=== PATIENT | female | born 2000 | race Caucasian/White ===

== ENCOUNTER 2024-02-28 01:04 | Inpatient (IN) ==
[2024-02-28 01:41] LABS: Basophils # (auto) 0.05 K/uL (0.00-0.20); Basophils % (auto) 0.5 %; Eosinophils # (auto) 0.22 K/uL (0.00-0.50); Eosinophils % (auto) 2.2 %; Hematocrit (blood only) 40.5 % (37.0-47.0); Hemoglobin 13.8 g/dl (12.0-16.0); Immature Granulocytes # (auto) 0.02 K/uL (0.01-0.20); Immature Granulocytes % (auto) 0.2 %; Lymphocytes # (auto) 2.99 K/uL (1.20-3.40); Lymphocytes % (auto) 29.4 %; Mean Corpuscular Hemoglobin 30.6 pg (25.0-34.0); Mean Corpuscular Hgb Conc 34.1 g/dL (32.0-36.0); Mean Corpuscular Volume 89.8 fL (80.0-100.0); Mean Platelet Volume 8.5 fL (9.4-12.4); Monocytes # (auto) 0.58 K/uL (0.11-0.59); Monocytes % (auto) 5.7 %; Neutrophils # (auto) 6.32 K/uL (1.40-6.50); Platelet Count 303 K/uL (130-400); RDW Coefficient of Variation 12.4 % (11.5-14.5); RDW Standard Deviation 40.9 fL (36.4-46.3); Red Blood Count 4.51 M/uL (4.20-5.40); White Blood Count 10.18 K/ul (4.8-10.8)
[2024-02-28 01:50] LABS: Albumin Globulin Ratio 1.7 (0.9-2); Albumin Level 4.5 gm/dl (3.4-5.0); BUN Creatinine Ratio 19.7 (10-20); Bilirubin,Total 0.4 mg/dl (0.2-1.0); Calcium 9.3 mg/dl (8.6-10.3); Creatinine Clr Calc Pharmacy 92.6 ml/min; Globulin 2.6 gm/dl (2.5-4.0); Potassium 3.6 mmol/L (3.5-5.1); Total Protein 7.1 gm/dl (6.0-8.3)
[2024-02-28 01:52] LABS: Pregnancy Test, Serum Negative (Negative)
[2024-02-28] MEDS: ONDANSETRON INJ 2 MG/ML 2 ML VIAL ONE (02:00)
[2024-02-28] MEDS: HYDROmorphone INJ 0.5 MG/0.5 ML SYR IV STA ×2 (02:36→03:34)
--- NOTE | 2024-02-28 02:43 | History & Physical Report ---
Date of Service February 28, 2024 Assessment & Plan (1) Abdominal pain: Present on Admission?: Yes Plan Admit under REPORTING LEAD service NPO/IV Fluids Pelvic / TV ultrasound CBC, BMP Dilaudid IV Pt is clinically stable Will have to be taken to the OR for cystectomy /oophorectomy based on the ultrasound report. History of Present Illness Chief Complaint: Acute abdominal pain Primary Care Provider: NO PCP pt 23 yr old G0 came in c/o severe acute abdominal /pelvic pain few hrs ago , all over the abdomen with nausea and vomiting. Pt was diagnosed with endometrioma last week in [place]. Pt is visiting her BF here yesterday, been to the bar last night started severe pain. Denies abnormal vaginal bleeding, urinary or bowel issues. No significant medical history. Pt had h/o regular periods but became slightly irregular since few months. Not on any method of contraception currently. Home Medications Medication Instructions Recorded Confirmed Type No Known Home Medications 02/28/24 02/28/24 History Past Med/Surg History Problem List (Updated 02/28/24 @ 02:40 by Honey Arredondo MD) Abdominal pain Social History Smoking Status: Never smoker Feels Safe at Home: Yes Review of Systems Review of Systems: All systems reviewed & are unremarkable except as noted in HPI & below Respiratory: as per Subjective / HPI Cardiovascular: as per Subjective / HPI Gastrointestinal: + abdominal pain, + nausea and + vomitin g Genitourinary: + pelvic pain Physical Exam Constitutional: WD/WN, vitals as above well developed Respiratory: normal respiratory effort, lungs clear to auscultation Cardiovascular: RRR, no murmur, no edema Gastrointestinal (Abdomen): Percussion/Palpation: + abdomen tender, + guarding and abdomen soft Results & Data Results & Data Vital Signs (Past 12 Hours) Vital Signs Temp Pulse Pulse Resp BP BP Pulse Ox 02/28/24 01:24 73 20 98 02/28/24 00:51 36.5 C 73 20 120/88 98 02/28/24 00:51 36.5 C 73 20 120/88 98 O2 Del Method 02/28/24 01:24 Room Air 02/28/24 00:51 Room Air 02/28/24 00:51 Room Air
[2024-02-28 03:11] LABS: Hemoglobin 13.5 g/dl (12.0-16.0)
[2024-02-28 03:15] LABS: iSTAT Creatinine 0.7 mg/dl (0.6-1.3); iSTAT Hemoglobin 12.9 g/dl (12.0-16.0); iSTAT Ionized Calcium 1.17 mmol/l (1.12-1.32); iSTAT Potassium 3.8 mmol/L (3.3-5.0)
[2024-02-28] MEDS ORDERED: SODIUM CHLORIDE 0.9% IV SCH (03:45)
[2024-02-28] MEDS: SODIUM CHLORIDE 0.9% 1,000 ML IV SCH (03:54)
--- NOTE | 2024-02-28 04:00 | Ultrasound Report ---
Exam(s): US PELVIS EXAM: US Pelvis Transabdominal, Complete CLINICAL HISTORY: Reason for exam: eval for ruptured ovarian cyst. TECHNIQUE: Real-time complete transabdominal pelvic ultrasound with image documentation. COMPARISON: No relevant prior studies available. FINDINGS: The study is significantly limited as transabdominal images are provided only. Within region of the left adnexa there is a large presumed complex cystic mass 12.7 cm in maximal dimension with apparent fluid fluid/fluid fat or fluid hematocrit level. There is some complex free pelvic fluid present. The ovary is heterogeneous in configuration and not well delineated. The right adnexa is not visualized. IMPRESSION: Significantly limited essentially nondiagnostic exam, there is suspicion of hemoperitoneum there may be large hemorrhagic cyst or endometrioma in an area marked left adnexa Communications: Call Doctor Above results Electronically signed by: Jose Sharp MD 02/28/24 03:59 AM
[2024-02-28] MEDS ORDERED: HYDROmorphone INJ 2 MG/ML SYR/VIAL IV PRN ×2 (04:25→12:25)
[2024-02-28 04:51] LABS: Basophils # (auto) 0.02 K/uL (0.00-0.20); Basophils % (auto) 0.1 %; Eosinophils # (auto) 0.03 K/uL (0.00-0.50); Eosinophils % (auto) 0.2 %; Hematocrit (blood only) 43.8 % (37.0-47.0); Hemoglobin 14.8 g/dl (12.0-16.0); Immature Granulocytes # (auto) 0.04 K/uL (0.01-0.20); Immature Granulocytes % (auto) 0.3 %; Lymphocytes # (auto) 0.85 K/uL (1.20-3.40); Lymphocytes % (auto) 5.6 %; Mean Corpuscular Hemoglobin 30.1 pg (25.0-34.0); Mean Corpuscular Hgb Conc 33.8 g/dL (32.0-36.0); Mean Platelet Volume 8.7 fL (9.4-12.4); Monocytes # (auto) 0.67 K/uL (0.11-0.59); Monocytes % (auto) 4.4 %; Neutrophils # (auto) 13.49 K/uL (1.40-6.50); Neutrophils % (auto) 89.4 %; Platelet Count 263 K/uL (130-400); RDW Coefficient of Variation 12.3 % (11.5-14.5); RDW Standard Deviation 40.3 fL (36.4-46.3); Red Blood Count 4.92 M/uL (4.20-5.40)
[2024-02-28 05:03] LABS: Calcium 9.2 mg/dl (8.6-10.3); Potassium 3.9 mmol/L (3.5-5.1)
[2024-02-28 05:08] LABS: Creatinine Clr Calc Pharmacy 115.4 ml/min
[2024-02-28 05:35] LABS: Appearance Urine Cloudy (Clear); Bacteria Urine Automated None Seen (None Seen); Bilirubin Urine Negative (Negative); Blood Urine Negative (Negative); Cast Urine Automated 0-2 /lpf (0-2); Color Urine Yellow; Epithelial Cell Urine Auto 0-2 /hpf (0-2); Glucose Urine UA Negative (Negative); Ketones Urine 2+ (Negative); Leukocyte Esterase Urine Negative (Negative); Nitrite Urine Negative (Negative); Protein Urine Negative (Negative); RBC Urine Automated 0-2 /hpf (0-2); Specific Gravity Urine 1.017 (1.000-1.030); Urobilinogen Urine Negative (Negative); WBC Urine Automated 0-5 /hpf (0-5); pH Urine 7.5 (4.5-7.5)
[2024-02-28] MEDS ORDERED: fentaNYL citrate PF 100 MCG/2 ML VIAL ONE ×2 (05:39→06:39)
[2024-02-28] MEDS ORDERED: MIDAZOLAM HCL 1 MG/ML 2ML VIAL ONE (05:39)
[2024-02-28] MEDS ORDERED: ONDANSETRON INJ 2 MG/ML 2 ML VIAL ONE (05:45)
[2024-02-28] MEDS ORDERED: ROCURONIUM BROMIDE 10 MG/ML 5 ML VIAL IV ONE (05:45)
[2024-02-28] MEDS ORDERED: PROPOFOL IV EMULSION 10 MG/ML 20 ML VIAL IV ONE (05:45)
[2024-02-28] MEDS ORDERED: DEXAMETHASONE SOD INJ 4 MG/ML VIAL ONE ×2 (05:45→06:50)
--- NOTE | 2024-02-28 05:50 | Anesthesiology Consultation ---
Date of Service February 28, 2024 Assessment & Plan (1) Encounter for pre-operative examination: Chart Review Chart Review: Acceptable Risk for Surgery History Surgery Operation Date: 02/28/24 06:00 Proposed Procedures p Ovarian cystectomy - Honey Arredondo MD Height/Weight Height: 5 ft 2 in Weight: 55.2 kg Allergies Allergy/AdvReac Type Severity Reaction Status Date / Time No Known Allergies Allergy Unverified 02/28/24 04:50 Medications Home Medications Medication Instructions Recorded Confirmed Last Taken No Known Home Medications 02/28/24 02/28/24 Unknown Active Medications Generic Name Dose Route Start Last Admin Trade Name Freq PRN Reason Stop Dose Admin Sodium Chloride 1,000 mls @ 125 mls/hr 02/28/24 04:00 02/28/24 03:54 Nss IV 02/29/24 03:59 125 mls/hr .Q8H ASHTYN Administration Past Medical History Medical History (Updated 02/28/24 @ 05:52 by Cresencio Zimmerman MD) Ovarian cyst Past Surgical History Surgical History (Updated 02/28/24 @ 05:51 by Cresencio Zimmerman MD) History of ankle surgery Social History Smoking Status: Never smoker Hx Alcohol Use: Yes Alcohol type: hard liquor alcohol intake frequency: a few times a month Hx Substance Use: No Physical Exam Vital Signs Last Vital Signs Temp 37 C 02/28/24 04:38 Pulse 96 H 02/28/24 04:38 Resp 20 02/28/24 04:38 BP 121/86 02/28/24 04:38 Pulse Ox 96 02/28/24 04:38 O2 Del Method Room Air 02/28/24 04:38 Testing Laboratory Results 02/28/24 04:39 02/28/24 04:39 Urine Color Yellow 02/28/24 05:00 Urine Appearance Cloudy (Clear) A 02/28/24 05:00 Urine pH 7.5 (4.5-7.5) 02/28/24 05:00 Ur Specific [place] 1.017 (1.000-1.030) 02/28/24 05:00 Urine Protein Negative (Negative) 02/28/24 05:00 Urine Glucose (UA) Negative (Negative) 02/28/24 05:00 Urine Ketones 2+ (Negative) H 02/28/24 05:00 Urine Nitrite Negative (Negative) 02/28/24 05:00 Ur Leukocyte Esterase Negative (Negative) 02/28/24 05:00 Urine WBC (Auto) 0-5 /hpf (0-5) 02/28/24 05:00 Urine RBC (Auto) 0-2 /hpf (0-2) 02/28/24 05:00 U Hyaline Cast (Auto) 0-2 /lpf (0-2) 02/28/24 05:00 U Epithel Cells (Auto) 0-2 /hpf (0-2) 02/28/24 05:00 Urine Bacteria (Auto) None Seen (None Seen) 02/28/24 05:00 Blood Type O Positive 02/28/24 02:05 Antibody Screen NEGATIVE 02/28/24 02:05 02/28/24 02:02 POC Glucose (other) 103 H
[2024-02-28] MEDS ORDERED: PROMETHAZINE HCL 6.25 MG in SODIUM CHLORIDE 0.9% 50 ML IV PRN (05:57)
[2024-02-28] MEDS ORDERED: KETOROLAC 30 MG/ML VIAL IV PRN (05:57)
[2024-02-28] MEDS ORDERED: ONDANSETRON INJ 2 MG/ML 2 ML VIAL IV PRN (05:57)
[2024-02-28] MEDS ORDERED: ATROPINE SULFATE 0.1 MG/ML 10ML SYR IV PRN (05:57)
[2024-02-28] MEDS: ceFAZolin 2000MG 2,000 MG/15 ML SYR IV ONE (06:20)
[2024-02-28] MEDS ORDERED: SUGAMMADEX SODIUM 200 MG/2 ML VIAL IV ONE (06:52)
[2024-02-28] MEDS: SURGICEL ABSORB HEMOSTAT 2IN X 14IN TOP ONE (07:00)
--- NOTE | 2024-02-28 07:20 | Post Operative Brief Note ---
Immediate Post Op Note Date of Surgery February 28, 2024 Pre & Post Diagnosis Operation Date: 02/28/24 06:00 Pre-Op Diagnosis: ruptured left ovarian cyst Post-Op Diagnosis: ruptured left ovarian cyst/ Endometrioma Chocolate color fluid I identified the patient and participated in the time-out.: Yes Procedure Operation Date: 02/28/24 06:00 Actual Procedures left Ovarian cystectomy(Not Applicable) - Honey Arredondo MD Surgeon Honey Arredondo MD Music Pastor surgical services tech avialable for retraction Quantitative Blood Loss (QBL) 50 Findings Consistent with Post-Op Diagnosis Specimens Specimen Description: A. Left cyst Drains Li Catheter Disposition Accompanied Patient To Recovery: Yes
[2024-02-28] MEDS ORDERED: KETOROLAC 30 MG/ML VIAL ONE (07:22)
--- NOTE | 2024-02-28 07:23 | Operative Report ---
Post Operative Report Pre & Post Diagnosis Operation Date: 02/28/24 06:00 Pre-Op Diagnosis: ruptured ovarian cyst Post-Op Diagnosis: ruptured ovarian cyst I identified the patient and participated in the time-out.: Yes Procedure Operation Date: 02/28/24 06:00 Actual Procedures p Ovarian cystectomy(Not Applicable) - Honey Arredondo MD Surgeon Honey Arredondo MD Pickle Pumper rn surgical avialable for retraction Estimated Blood Loss 50 Findings Consistent with Post-Op Diagnosis Specimens chocolate color pelvic fluid, left ovarian cyst Drains chandler to gravity Anesthesia Type General Complications none Disposition Accompanied Patient To Recovery: Yes Disposition: PCU Description of Procedure pt taken to the OR, placed in supine position, general endotracheal incision given with out difficulty. Chandler is placed . 2 gm of Ancef iv given. Pt is prepped and draped in usual fashion, 2 inches small Pfannenstiel skin incision made 2 cm above the symphysis pubis. the fascia is from the underlying fascia, entered the peritoneum after the rectus muscles . large amount of chocolate color fluid seen in the abdomen and pelvis , suctioned . kevin luca 400 cc drained. moist sponges placed in the abdomen for better visualization , large left ovarian cyst approx 13 cm noted, which is ruptured draining the fluid. Both the fallopian tubes are identified and grasped with [place] clamp. Left fallopian tube followed the the fimbriae. with gentle traction, the Lower segment of the cyst is held with Kait clamps and using the hand held LigaSure , the lower part of the cyst is coagulated and cut all across and , sent to pathology. sutures are placed with 2.0 Vicryl at the top portion of the ovarian segment for hemostases. through irrigation done, Surgifoam placed on the site . good hemostases noted, uetrus and both the ovaries are normal. Fascia closed with 0.Vicryl. subcutaneous layer closed with 2.0 Monocryl. Skin is closed with 3.0 Vicryl on Neeraj needle. Dermabond applied. Blood loss 50 cc Sponge , needle , instrument counts complete X 3. Pt tolearted the procdure well. I attest to the content of the Intraoperative Record and any orders documented therein. Any exceptions are noted below. Supervising Physician Co-Signing Physician Notes kortney Arredondo MD
[2024-02-28] MEDS: LIDOCAINE 1% LOCAL 20 ML VIAL ONE (07:31)
[2024-02-28] MEDS: HYDROmorphone INJ 1 MG/ML SYRINGE IV PRN ×2 (07:43→09:17)
--- NOTE | 2024-02-28 07:51 | Anesthesiology Progress Note ---
Date of Service February 28, 2024 Anesthesia Post Procedure Vital Signs Vital Signs: Temp Pulse Pulse Pulse Resp BP BP 02/28/24 07:24 36.0 C L 70 12 125/79 02/28/24 04:38 37 C 96 H 20 121/86 02/28/24 01:24 73 20 02/28/24 01:20 78 02/28/24 00:51 36.5 C 73 20 120/88 02/28/24 00:51 36.5 C 73 20 120/88 Pulse Ox O2 Del Method 02/28/24 07:24 93 Room Air 02/28/24 04:38 96 Room Air 02/28/24 01:24 98 Room Air 02/28/24 01:20 02/28/24 00:51 98 Room Air 02/28/24 00:51 98 Room Air Pain Intensity Abdomen: Pain Intensity: 6 Transfer of Care Handoff Completed per policy Notes Mental Status: alert / awake / arousable and participated in evaluation Patient Amnestic to Procedure: Yes Nausea / Vomiting: adequately controlled Pain: adequately controlled Airway Patency, RR, SpO2: stable & adequate BP & HR: stable & adequate Hydration State: stable & adequate Anesthetic Complications: no major complications apparent and Pt Satisfied with anesthetic care
--- NOTE | 2024-02-28 09:17 | Emergency Department Note ---
Impression & Plan Ovarian cyst Admit to Dr. Arredondo ED Provider Note NAME: KRISTINA GOTTLIEB AGE: 23 SEX: Female INFORMANT: Patient ED PROVIDER(S): Do Chapman DO CHIEF COMPLAINT: severe abdominal pain PLAN: Disposition: admit to gynecology MEDICAL DECISION MAKING: this is a 23-year-old female patient with a known history of a 13 cm ovarian cyst who presents to the emergency department with sudden onset of severe abdominal pain. The patient is concerned that the cyst has ruptured. The patient is hemodynamically stable. On physical exam, the patient has an acute abdomen. H&H were stable. On FAST exam, the patient has some free fluid in the abdomen. I immediately contacted the bungy jump master on-call and she presented to the ER to evaluate the patient. Patient was typed and screened. She went to ultrasound and she was medicated with IV Dilaudid. the patient was kept NPO. Laboratory studies revealed a hemoglobin of 13.8. test was negative. There was no leukocytosis. Urinalysis revealed no signs of infection. There was 2+ ketones. She was admitted by Dr. Arredondo And will have surgery in the morning. Care/management discussed with: Dr. Arredondo And the stat rad radiologist. Triage Nursing notes: reviewed and agree with them. Vital Signs: reviewed and were unremarkable Additional History obtained from: the patient's boyfriend who is at the bedside Differential Diagnosis: ovarian torsion, ovarian cyst rupture, endometrioma, ectopic Diagnostics, independently interpreted by me: Imaging studies: pelvic ultrasound-as per stat rad HPI: 23 year old Female arrives for evaluation of severe abdominal/pelvic pain. this is a 23-year-old female patient who is visiting her boyfriend from [facility]. Is a known history of a 13 cm cyst on her right ovary. she had a fairly sudden onset of discomfort in the lower abdomen. She she had associated nausea and vomiting. EMS was called and she was given IV fentanyl. This gave her no significant relief of her discomfort. PAST MEDICAL HISTORY: None, SOCIAL HISTORY: from [place], [place], HOME MEDICATIONS: none ALLERGIES: none VITALS: See Below PHYSICAL EXAMINATION: HEENT: Head - normocephalic and atraumatic. Pupils are equal, round, and reactive to light. Extraocular eye muscles are intact, and sclera are anicteric. Nose - moist nasal mucosa without discharge. Mouth - moist buccal mucosa. Oropharynx is nonerythematous and there is no tonsillar exudate or edema noted. Neck: Supple; no cervical lymphadenopathy Heart: Regular rate and rhythm. There is a normal S1 and S2 with no murmurs, clicks, or gallops appreciated. Lungs: Clear to auscultation bilaterally with no wheezes, rales, or rhonchi. Abdomen: Soft, exquisitely tender to even light palpation. There was guarding and rebound noted. This was consistent with an acute abdomen. Extremities: No evidence of cyanosis, clubbing, or edema. There are easily palpable peripheral pulses. Skin: warm and dry with good turgor and no rashes. Emergency Department Treatment: nursing clinical director, IV Dilaudid x 2 Emergency department course: patient was evaluated in room C-3. A complete history and physical was performed. Laboratory studies were drawn as above. Urine specimen was obtained. The patient was typed and screened. A FAST exam was performed and showed free fluid. I consulted the on-call bungy jump master. A second IV lock was initiated. The patient was medicated with IV Dilaudid. She went for formal pelvic ultrasound. She was given a second dose of IV Dilaudid. She remains hemodynamically stable. She was admitted for surgery. Past Med/Surg History Problem List (Updated 02/28/24 @ 09:17 by Do Chapman DO) Ovarian cyst (Acute) Encounter for pre-operative examination Abdominal pain Medical History (Updated 02/28/24 @ 09:17 by Do Chapman DO) Ovarian cyst Surgical History (Updated 02/28/24 @ 05:51 by Cresencio Zimmerman MD) History of ankle surgery Social History Smoking Status: Never smoker Hx Alcohol Use: Yes Alcohol type: hard liquor Hx Substance Use: No Preferred Language: Korean Communication Ability: Effective Employee Benefits Manager Required: No Beliefs That Will Affect Care: None Current Living Situation Comment: apartment with roommate Feels Safe at Home: Yes Safety Concerns: Feels Safe At This Time Assistive Devices: None Allergies Allergies Allergy/AdvReac Type Severity Reaction Status Date / Time No Known Allergies Allergy Unverified 02/28/24 04:50 Home Meds Home Medications Medication Instructions Recorded Confirmed No Known Home Medications 02/28/24 02/28/24 Results & Data (ED) Vital Signs Vital Signs - 24 hr 02/28/24 00:51 02/28/24 00:51 02/28/24 01:20 Temperature 36.5 C 36.5 C Temperature Source Oral Oral Pulse Rate 73 78 Pulse Rate [Left] 73 Pulse Rhythm Regular Pulse Rhythm [Left] Regular Pulse Strength Normal Pulse Strength [Left] Normal Respiratory Rate 20 20 Respiratory Effort / Characteristics Non-Labored Spontaneous Non-Labored Spontaneous Respiratory Depth Normal Normal Respiratory Pattern Regular Regular Blood Pressure 120/88 Blood Pressure [Right Arm] 120/88 Blood Pressure Mean 98 Blood Pressure Mean [Right Arm] 98 Blood Pressure Position Lying Blood Pressure Position [Right Arm] Lying Pulse Oximetry 98 98 Oxygen Delivery Method Room Air Room Air Sepsis Recent Fever Within 48 Hours No Sepsis New/Unexplained Change in Mental Status N/A Sepsis Action Taken by Nursing No Action Required 02/28/24 01:24 Temperature Temperature Source Pulse Rate 73 Pulse Rate [Left] Pulse Rhythm Regular Pulse Rhythm [Left] Pulse Strength Pulse Strength [Left] Respiratory Rate 20 Respiratory Effort / Characteristics Respiratory Depth Respiratory Pattern Blood Pressure Blood Pressure [Right Arm] Blood Pressure Mean Blood Pressure Mean [Right Arm] Blood Pressure Position Blood Pressure Position [Right Arm] Pulse Oximetry 98 Oxygen Delivery Method Room Air Sepsis Recent Fever Within 48 Hours Sepsis New/Unexplained Change in Mental Status Sepsis Action Taken by Nursing Laboratory Data 02/28/24 04:39 02/28/24 04:39 Lab Results 02/28/24 02/28/24 02/28/24 Range/Units 01:14 02:02 02:05 WBC 10.18 (4.8-10.8) K/ul RBC 4.51 (4.20-5.40) M/uL Hgb 13.8 (12.0-16.0) g/dl POC Hgb 12.9 (12.0-16.0) g/dl Hct 40.5 (37.0-47.0) % POC Hct 38 (37-47) % MCV 89.8 (80.0-100.0) fL MCH 30.6 (25.0-34.0) pg MCHC 34.1 (32.0-36.0) g/dL RDW Std Deviation 40.9 (36.4-46.3) fL RDW Coeff of Werner 12.4 (11.5-14.5) % Plt Count 303 (130-400) K/uL MPV 8.5 L (9.4-12.4) fL Immature Gran % (Auto) 0.2 % Neut % (Auto) 62.0 % Lymph % (Auto) 29.4 % White % (Auto) 5.7 % Eos % (Auto) 2.2 % Baso % (Auto) 0.5 % Neut # (Auto) 6.32 (1.40-6.50) K/uL Lymph # (Auto) 2.99 (1.20-3.40) K/uL White # (Auto) 0.58 (0.11-0.59) K/uL Eos # (Auto) 0.22 (0.00-0.50) K/uL Baso # (Auto) 0.05 (0.00-0.20) K/uL Immature Gran # (Auto) 0.02 (0.01-0.20) K/uL POC Sodium 142 (135-144) mmol/L Sodium 141 (136-145) mmol/L POC Potassium 3.8 (3.3-5.0) mmol/L Potassium 3.6 (3.5-5.1) mmol/L POC Chloride 104 (101-112) mmol/L Chloride 107 (98-107) mmol/L Carbon Dioxide 27 (21-32) mmol/L POC Total CO2 25 (24-31) mmol/L Anion Gap 7 (3-11) POC Anion Gap 18.0 (16-25) mmol/L POC BUN 14 (7-18) mg/dl BUN 15 (6-23) mg/dl Creatinine 0.76 (0.6-1.2) mg/dl POC Creatinine 0.7 (0.6-1.3) mg/dl Est Cr Clr Drug Dosing 92.6 ml/min eGFR 114.26 BUN/Creatinine Ratio 19.7 (10-20) Glucose 84 (70-99(Fasting)) mg/dl POC Glucose (other) 103 H (70-99) mg/dl Calcium 9.3 (8.6-10.3) mg/dl POC Ioniz Calcium Isabella 1.17 (1.12-1.32) mmol/l Total Bilirubin 0.4 (0.2-1.0) mg/dl AST 15 (13-39) U/L ALT 13 (7-52) U/L Alkaline Phosphatase 71 (34-104) U/L Total Protein 7.1 (6.0-8.3) gm/dl Albumin 4.5 (3.4-5.0) gm/dl Globulin 2.6 (2.5-4.0) gm/dl Albumin/Globulin Ratio 1.7 (0.9-2) Lipase 26 (11-82) U/L HCG, Qual Negative (Negative) Blood Type O Positive Antibody Screen NEGATIVE 02/28/24 Range/Units 02:38 WBC (4.8-10.8) K/ul RBC (4.20-5.40) M/uL Hgb 13.5 (12.0-16.0) g/dl POC Hgb (12.0-16.0) g/dl Hct 40.0 (37.0-47.0) % POC Hct (37-47) % MCV (80.0-100.0) fL MCH (25.0-34.0) pg MCHC (32.0-36.0) g/dL RDW Std Deviation (36.4-46.3) fL RDW Coeff of Werner (11.5-14.5) % Plt Count (130-400) K/uL MPV (9.4-12.4) fL Immature Gran % (Auto) % Neut % (Auto) % Lymph % (Auto) % White % (Auto) % Eos % (Auto) % Baso % (Auto) % Neut # (Auto) (1.40-6.50) K/uL Lymph # (Auto) (1.20-3.40) K/uL White # (Auto) (0.11-0.59) K/uL Eos # (Auto) (0.00-0.50) K/uL Baso # (Auto) (0.00-0.20) K/uL Immature Gran # (Auto) (0.01-0.20) K/uL POC Sodium (135-144) mmol/L Sodium (136-145) mmol/L POC Potassium (3.3-5.0) mmol/L Potassium (3.5-5.1) mmol/L POC Chloride (101-112) mmol/L Chloride (98-107) mmol/L Carbon Dioxide (21-32) mmol/L POC Total CO2 (24-31) mmol/L Anion Gap (3-11) POC Anion Gap (16-25) mmol/L POC BUN (7-18) mg/dl BUN (6-23) mg/dl Creatinine (0.6-1.2) mg/dl POC Creatinine (0.6-1.3) mg/dl Est Cr Clr Drug Dosing ml/min eGFR BUN/Creatinine Ratio (10-20) Glucose (70-99(Fasting)) mg/dl POC Glucose (other) (70-99) mg/dl Calcium (8.6-10.3) mg/dl POC Ioniz Calcium Isabella (1.12-1.32) mmol/l Total Bilirubin (0.2-1.0) mg/dl AST (13-39) U/L ALT (7-52) U/L Alkaline Phosphatase (34-104) U/L Total Protein (6.0-8.3) gm/dl Albumin (3.4-5.0) gm/dl Globulin (2.5-4.0) gm/dl Albumin/Globulin Ratio (0.9-2) Lipase (11-82) U/L HCG, Qual (Negative) Blood Type Antibody Screen Administered Medications Acetaminophen (Acetaminophen 325 Mg Tab) 650 mg PO Q4H PRN PRN Reason: Pain Stop: 03/29/24 12:23 Last Admin: 02/28/24 12:36 Dose: 650 mg Documented By: ASHLYN Sodium Chloride (Nss) 1,000 mls @ 125 mls/hr IV .Q8H ASHTYN Stop: 02/29/24 03:59 Last Admin: 02/28/24 15:09 Dose: Not Given Documented By: Admin: 02/28/24 03:54 Dose: 125 mls/hr Documented By: KATHI Simethicone (Simethicone 80 Mg Chew) 80 mg PO Q6H PRN PRN Reason: Flatulence Stop: 03/29/24 12:22 Last Admin: 02/28/24 12:36 Dose: 80 mg Documented By: ASHLYN Discontinued Medications Hydromorphone HCl (Hydromorphone Inj 0.5 Mg/0.5 Ml Syr) 0.5 mg IV NOW STA Stop: 02/28/24 02:32 Last Admin: 02/28/24 02:36 Dose: 0.5 mg Documented By: KATHI Hydromorphone HCl (Hydromorphone Inj 0.5 Mg/0.5 Ml Syr) 0.5 mg IV NOW STA Stop: 02/28/24 03:27 Last Admin: 02/28/24 03:34 Dose: 0.5 mg Documented By: KATHI Hydromorphone HCl (Hydromorphone Inj 1 Mg/Ml Syringe) 1 mg IV Q6H PRN PRN Reason: Moderate Pain (Scale 4, 5, 6) Stop: 03/13/24 03:38 Last Admin: 02/28/24 09:17 Dose: 1 mg Documented By: ASHLYN Hydromorphone HCl (Hydromorphone Inj 1 Mg/Ml Syringe) 0.25 mg IV Q5M PRN PRN Reason: PACU Use Only-Pain Stop: 02/28/24 13:57 Last Admin: 02/28/24 07:58 Dose: 0.25 mg Documented By: Admin: 02/28/24 07:53 Dose: 0.25 mg Documented By: Admin: 02/28/24 07:48 Dose: 0.25 mg Documented By: Admin: 02/28/24 07:43 Dose: 0.25 mg Documented By: RAVIN Cefazolin Sodium (Ancef 2000mg) 2,000 mg in 15 mls @ 3.75 mls/min IV PREOP ONE; Protocol Stop: 02/28/24 05:45 Last Admin: 02/28/24 06:20 Dose: 3.75 mls/min Documented By: SEGUN Ibuprofen (Ibuprofen 600 Mg Tab) Confirm Administered Dose 600 mg PO .STK-MED ONE Stop: 02/28/24 12:35 Last Admin: 02/28/24 12:35 Dose: 600 mg Documented By: ASHLYN Lidocaine HCl (Lidocaine 1% Local 20 Ml Vial) Confirm Administered Dose 1 ml .ROUTE .STK-MED ONE Stop: 02/28/24 06:08 Last Admin: 02/28/24 07:31 Dose: Not Given Documented By: NICK Miscellaneous (Surgicel Absorb Hemostat 2in X 14in) 1 each TOP ONCE ONE Stop: 02/28/24 07:00 Last Admin: 02/28/24 07:00 Dose: 1 each Documented By: [id number] Ondansetron HCl (Ondansetron Inj 2 Mg/Ml 2 Ml Vial) Confirm Administered Dose 4 mg .ROUTE .[employer] ONE Stop: 02/28/24 01:58 Last Admin: 02/28/24 02:00 Dose: 4 mg Documented By: KATHI Imaging Data Radiologist's Impression: Pelvis Ultrasound 02/28/24 02:31 CR Exam(s): US PELVIS EXAM: US Pelvis Transabdominal, Complete CLINICAL HISTORY: Reason for exam: eval for ruptured ovarian cyst. TECHNIQUE: Real-time complete transabdominal pelvic ultrasound with image documentation. COMPARISON: No relevant prior studies available. FINDINGS: The study is significantly limited as transabdominal images are provided only. Within region of the left adnexa there is a large presumed complex cystic mass 12.7 cm in maximal dimension with apparent fluid fluid/fluid fat or fluid hematocrit level. There is some complex free pelvic fluid present. The ovary is heterogeneous in configuration and not well delineated. The right adnexa is not visualized. IMPRESSION: Significantly limited essentially nondiagnostic exam, there is suspicion of hemoperitoneum there may be large hemorrhagic cyst or endometrioma in an area marked left adnexa Communications: Call Doctor Above results Electronically signed by: Jose Sharp MD 02/28/24 03:59 AM Discharge Plan Visit Data Chief Complaint: Abdominal Pain Stated Complaint: Lower Abdominal Pain ED Provider: Do Chapman Discharge Problem: Ovarian cyst Patient Disposition: Admitted As Inpatient Discharge Instructions Interventions: ED Discharge Assessment Last Done: 02/28/24 04:14 Discharge Problem: Ovarian cyst Qualifiers: Laterality: right Qualified Code(s): N83.201 - Unspecified ovarian cyst, right side
[2024-02-28] MEDS ORDERED: IBUPROFEN 200 MG/10 ML UDC PO PRN (12:23)
[2024-02-28] MEDS ORDERED: HYDROmorphone INJ 1 MG/ML SYRINGE IV PRN (12:25)
[2024-02-28] MEDS: IBUPROFEN 600 MG TAB PO ONE (12:35)
[2024-02-28] MEDS: SIMETHICONE 80 MG CHEW PO PRN (12:36)
[2024-02-28] MEDS: ACETAMINOPHEN 325 MG TAB PO PRN (12:36)
[2024-02-28] MEDS ORDERED: Nursing to Pharmacy Communication SCH (13:00)
[2024-02-28] MEDS ORDERED: IBUPROFEN 600 MG TAB PO PRN ×2 (13:10→13:11)
[2024-02-28] MEDS: ONDANSETRON INJ 2 MG/ML 2 ML VIAL IV PRN (16:45)
[2024-02-28] MEDS: Nursing to Pharmacy Communication SCH (17:41)
[2024-02-28] MEDS: IBUPROFEN 600 MG TAB PO PRN (17:50)
[2024-02-28] MEDS: oxyCODONE/ACETAMINOPHEN 5mg/325mg TAB PO PRN (19:05)
[2024-02-29] MEDS: ACETAMINOPHEN 325 MG TAB PO PRN (08:26)
--- NOTE | 2024-02-29 10:19 | Gynecologic Progress Note ---
Date of Service February 29, 2024 Assessment & Plan Admission and Anticipated Discharge Date Admission Date: February 28, 2024 Subjective Patient is seen and examined. She feels better, no complaints. Pain is under control with oral meds. Ambulating without dizziness Voiding without difficulty Tolerating regular diet with out N&V Flatus neg Bleeding is minimal No fever/ chills/ CP/ SOB/ N&V/ Leg pain Vital Signs Temp Pulse Pulse Resp BP Pulse Ox O2 Del Method 02/29/24 07:07 36.8 C 73 16 96/60 L 98 Room Air 02/29/24 03:16 36.8 C 68 16 96/60 L 98 Room Air 02/28/24 22:48 37 C 74 16 106/54 L 96 Room Air Lab Results 02/28/24 02/28/24 02/28/24 Range/Units 01:14 02:02 02:05 WBC 10.18 (4.8-10.8) K/ul RBC 4.51 (4.20-5.40) M/uL Hgb 13.8 (12.0-16.0) g/dl POC Hgb 12.9 (12.0-16.0) g/dl Hct 40.5 (37.0-47.0) % POC Hct 38 (37-47) % MCV 89.8 (80.0-100.0) fL MCH 30.6 (25.0-34.0) pg MCHC 34.1 (32.0-36.0) g/dL RDW Std Deviation 40.9 (36.4-46.3) fL RDW Coeff of Werner 12.4 (11.5-14.5) % Plt Count 303 (130-400) K/uL MPV 8.5 L (9.4-12.4) fL Immature Gran % (Auto) 0.2 % Neut % (Auto) 62.0 % Lymph % (Auto) 29.4 % Levy % (Auto) 5.7 % Eos % (Auto) 2.2 % Baso % (Auto) 0.5 % Neut # (Auto) 6.32 (1.40-6.50) K/uL Lymph # (Auto) 2.99 (1.20-3.40) K/uL Levy # (Auto) 0.58 (0.11-0.59) K/uL Eos # (Auto) 0.22 (0.00-0.50) K/uL Baso # (Auto) 0.05 (0.00-0.20) K/uL Immature Gran # (Auto) 0.02 (0.01-0.20) K/uL POC Sodium 142 (135-144) mmol/L Sodium 141 (136-145) mmol/L POC Potassium 3.8 (3.3-5.0) mmol/L Potassium 3.6 (3.5-5.1) mmol/L POC Chloride 104 (101-112) mmol/L Chloride 107 (98-107) mmol/L Carbon Dioxide 27 (21-32) mmol/L POC Total CO2 25 (24-31) mmol/L Anion Gap 7 (3-11) POC Anion Gap 18.0 (16-25) mmol/L POC BUN 14 (7-18) mg/dl BUN 15 (6-23) mg/dl Creatinine 0.76 (0.6-1.2) mg/dl POC Creatinine 0.7 (0.6-1.3) mg/dl Est Cr Clr Drug Dosing 92.6 ml/min eGFR 114.26 BUN/Creatinine Ratio 19.7 (10-20) Glucose 84 (70-99(Fasting)) mg/dl POC Glucose (other) 103 H (70-99) mg/dl Calcium 9.3 (8.6-10.3) mg/dl POC Ioniz Calcium Isabella 1.17 (1.12-1.32) mmol/l Total Bilirubin 0.4 (0.2-1.0) mg/dl AST 15 (13-39) U/L ALT 13 (7-52) U/L Alkaline Phosphatase 71 (34-104) U/L Total Protein 7.1 (6.0-8.3) gm/dl Albumin 4.5 (3.4-5.0) gm/dl Globulin 2.6 (2.5-4.0) gm/dl Albumin/Globulin Ratio 1.7 (0.9-2) Lipase 26 (11-82) U/L HCG, Qual Negative (Negative) Urine Color Urine Appearance (Clear) Urine pH (4.5-7.5) Ur Specific Kent (1.000-1.030) Urine Protein (Negative) Urine Glucose (UA) (Negative) Urine Ketones (Negative) Urine Blood (Negative) Urine Nitrite (Negative) Urine Bilirubin (Negative) Urine Urobilinogen (Negative) Ur Leukocyte Esterase (Negative) Urine WBC (Auto) (0-5) /hpf Urine RBC (Auto) (0-2) /hpf U Hyaline Cast (Auto) (0-2) /lpf U Epithel Cells (Auto) (0-2) /hpf Urine Bacteria (Auto) (None Seen) Blood Type O Positive Antibody Screen NEGATIVE 02/28/24 02/28/24 02/28/24 Range/Units 02:38 04:39 05:00 WBC 15.10 H (4.8-10.8) K/ul RBC 4.92 (4.20-5.40) M/uL Hgb 13.5 14.8 (12.0-16.0) g/dl POC Hgb (12.0-16.0) g/dl Hct 40.0 43.8 (37.0-47.0) % POC Hct (37-47) % MCV 89.0 (80.0-100.0) fL MCH 30.1 (25.0-34.0) pg MCHC 33.8 (32.0-36.0) g/dL RDW Std Deviation 40.3 (36.4-46.3) fL RDW Coeff of Werner 12.3 (11.5-14.5) % Plt Count 263 (130-400) K/uL MPV 8.7 L (9.4-12.4) fL Immature Gran % (Auto) 0.3 % Neut % (Auto) 89.4 % Lymph % (Auto) 5.6 % Levy % (Auto) 4.4 % Eos % (Auto) 0.2 % Baso % (Auto) 0.1 % Neut # (Auto) 13.49 H (1.40-6.50) K/uL Lymph # (Auto) 0.85 L (1.20-3.40) K/uL Levy # (Auto) 0.67 H (0.11-0.59) K/uL Eos # (Auto) 0.03 (0.00-0.50) K/uL Baso # (Auto) 0.02 (0.00-0.20) K/uL Immature Gran # (Auto) 0.04 (0.01-0.20) K/uL POC Sodium (135-144) mmol/L Sodium 139 (136-145) mmol/L POC Potassium (3.3-5.0) mmol/L Potassium 3.9 (3.5-5.1) mmol/L POC Chloride (101-112) mmol/L Chloride 107 (98-107) mmol/L Carbon Dioxide 22 (21-32) mmol/L POC Total CO2 (24-31) mmol/L Anion Gap 10 (3-11) POC Anion Gap (16-25) mmol/L POC BUN (7-18) mg/dl BUN 14 (6-23) mg/dl Creatinine 0.61 (0.6-1.2) mg/dl POC Creatinine (0.6-1.3) mg/dl Est Cr Clr Drug Dosing 115.4 ml/min eGFR 130.36 BUN/Creatinine Ratio 23.0 H (10-20) Glucose 87 (70-99(Fasting)) mg/dl POC Glucose (other) (70-99) mg/dl Calcium 9.2 (8.6-10.3) mg/dl POC Ioniz Calcium Isabella (1.12-1.32) mmol/l Total Bilirubin (0.2-1.0) mg/dl AST (13-39) U/L ALT (7-52) U/L Alkaline Phosphatase (34-104) U/L Total Protein (6.0-8.3) gm/dl Albumin (3.4-5.0) gm/dl Globulin (2.5-4.0) gm/dl Albumin/Globulin Ratio (0.9-2) Lipase 12 (11-82) U/L HCG, Qual (Negative) Urine Color Yellow Urine Appearance Cloudy A (Clear) Urine pH 7.5 (4.5-7.5) Ur Specific Kent 1.017 (1.000-1.030) Urine Protein Negative (Negative) Urine Glucose (UA) Negative (Negative) Urine Ketones 2+ H (Negative) Urine Blood Negative (Negative) Urine Nitrite Negative (Negative) Urine Bilirubin Negative (Negative) Urine Urobilinogen Negative (Negative) Ur Leukocyte Esterase Negative (Negative) Urine WBC (Auto) 0-5 (0-5) /hpf Urine RBC (Auto) 0-2 (0-2) /hpf U Hyaline Cast (Auto) 0-2 (0-2) /lpf U Epithel Cells (Auto) 0-2 (0-2) /hpf Urine Bacteria (Auto) None Seen (None Seen) Blood Type Antibody Screen PE: General: Alert, orientedx3, NAD CVS: S1S2 RRR Lungs; CTAB Abd: soft, NT, ND, BS+, fundus firm, below Umbilicus Incision: Clean, dry, intact Perineum intact, Lochia rubra minimal Ext; NT, no edema AP: 23 yo s/p [place], Ovarian cystectomy for endometrioma, pod#1 VSS Afebrile doing well Continue routine postop care Encourage ambulation, PO intake All questions were answered D/C home after CBC Results & Data Vital Signs (Past 12 Hours) Vital Signs Temp Pulse Pulse Resp BP Pulse Ox O2 Del Method 02/29/24 07:07 36.8 C 73 16 96/60 L 98 Room Air 02/29/24 03:16 36.8 C 68 16 96/60 L 98 Room Air 02/28/24 22:48 37 C 74 16 106/54 L 96 Room Air
[2024-02-29 11:30] LABS: Basophils # (auto) 0.04 K/uL (0.00-0.20); Basophils % (auto) 0.3 %; Eosinophils # (auto) 0.08 K/uL (0.00-0.50); Eosinophils % (auto) 0.7 %; Hematocrit (blood only) 35.1 % (37.0-47.0); Hemoglobin 11.8 g/dl (12.0-16.0); Immature Granulocytes # (auto) 0.06 K/uL (0.01-0.20); Immature Granulocytes % (auto) 0.5 %; Lymphocytes # (auto) 1.86 K/uL (1.20-3.40); Lymphocytes % (auto) 15.7 %; Mean Corpuscular Hemoglobin 30.6 pg (25.0-34.0); Mean Corpuscular Hgb Conc 33.6 g/dL (32.0-36.0); Mean Corpuscular Volume 90.9 fL (80.0-100.0); Mean Platelet Volume 8.7 fL (9.4-12.4); Monocytes # (auto) 0.91 K/uL (0.11-0.59); Monocytes % (auto) 7.7 %; Neutrophils # (auto) 8.91 K/uL (1.40-6.50); Neutrophils % (auto) 75.1 %; Platelet Count 238 K/uL (130-400); RDW Coefficient of Variation 12.8 % (11.5-14.5); RDW Standard Deviation 42.2 fL (36.4-46.3); Red Blood Count 3.86 M/uL (4.20-5.40); White Blood Count 11.86 K/ul (4.8-10.8)
== END 2024-02-29 12:30 | disposition home or self-care (01) | DRG 743 ==
LOC: ED 01:04 → 4E1 03:36